=== PATIENT | female | born 1990 | race Caucasian/White ===

== ENCOUNTER 2018-06-30 17:55 | Emergency (ER) | payer OTHER ==
[~2018-06-30] VITALS: Ht 162.6 cm; Wt 120.9 kg
[~2018-06-30 17:55] MED LIST: ACET-1693 PO; FERR1TAB62 PO; IBUP-1050 PO; MULT-513 PO
[2018-06-30 18:00] VITALS: TEMP 36.9; O2SAT 100; Ht 162.6 cm; Wt 120.9 kg
[2018-06-30] MEDS ORDERED: MUPIROCIN 2% OINT 22 GM TUBE EXT STA (18:27)
[2018-06-30] MEDS ORDERED: CLINDAMYCIN HCL 150 MG CAP PO ONE (18:30)
[2018-06-30] MEDS ORDERED: CLIN150C PO (18:39)
[2018-06-30 19:02] VITALS: BP 151/83; PULSE 78
--- NOTE | 2018-06-30 23:44 | EMERGENCY ROOM VISIT NOTE ---
History Report prepared by Jose: Hai Collins Under the Supervision of: Dr. Enmanuel Jara M.D. First contact with patient: 18:04 Chief Complaint: BITE Stated Complaint: SPIDER BITE, SEEN YESTERDAY BUT GETTING WORSE History of Present Illness The patient is a 28 year old female who presents to the Emergency Room with complaints of a worsening bite to the right lower leg. The patient states that she was bitten by what she assumed to be a bug on her right leg over a week ago. She states that she itched it that day and applied cortisone. She reports that 2 days later, the site appeared to be "bubbling up" with a dark spot in the middle. She notes that yesterday she went to [facility] urgent care and was told that it looked like a possible spider bite. She was given Keflex, which she notes she has been taking. Today, she reports that she noticed swelling to the right leg and notes that there is redness surrounding the area and that it is painful to the touch. She states that she called her PCP today, who instructed her to report to the ER. The patient states that her son has had MRSA multiple times. The patient denies fevers, nausea, vomiting, chills, or upper leg pain. Source of History: patient Onset: over a week ago Position: leg (right) Quality: other (bite) Timing: worsening Note: redness and swelling Review of Systems See HPI for pertinent positives and negatives. A total of six systems were reviewed and were otherwise negative.v Past Medical & Surgical Medical Problems: (1) Intrauterine (2) Migraine (3) SROM (spontaneous rupture of membranes) Family History Diabetes mellitus FH: heart disease Kidney disease Kidney stones Social History Smoking Status: Never Smoker Alcohol Use: none Drug Use: none Marital Status: other Housing Status: lives with family Occupation Status: employed Current/Historical Medications Scheduled Clindamycin Hcl (Cleocin), 150 MG PO QID Ferrous Sulfate (Ferrous Sulfate), 325 MG PO DAILY Multivitamins/Minerals (Mvi With Minerals), 1 TAB PO DAILY Scheduled PRN Acetaminophen Tab (Tylenol), 650 MG PO Q4H PRN for Pain or Fever Ibuprofen (Advil), 400-600 MG PO Q6H PRN for QUIÑONEZ/Pain/Cramping Allergies Coded Allergies: Sulfa Drugs (Verified Allergy, Unknown, UNKNOWN, 06/30/18) Physical Exam Vital Signs Date Time Temp Pulse Resp B/P (MAP) Pulse Ox O2 Delivery O2 Flow Rate FiO2 06/30/18 19:02 78 20 151/83 06/30/18 18:00 36.9 88 20 145/82 100 Room Air Physical Exam GENERAL: Awake, alert, well-appearing, in no distress NEURO: Normal sensorium. No sensory or motor deficits noted. SKIN: 2 cm round erythematous and tender area on the back of the right lower leg with a small central ulceration and pus underneath the surface. MUSCULOSKELETAL: No joint edema. No bony tenderness. See skin examination above. Remainder of the right leg examines normally. Medical Decision & Procedures Medications Administered Medications (Trade) Dose Ordered Sig/Rosendo Route Start Time Stop Time Status Last Admin Dose Admin Clindamycin HCl (Cleocin Cap) 150 mg ONE ONCE PO 06/30/18 18:30 06/30/18 18:31 DC 06/30/18 18:30 150 MG Mupirocin (Bactroban 2% Oint) 1 appln NOW STAT EXT 06/30/18 18:27 06/30/18 18:28 DC 06/30/18 19:02 1 APPLN ED Course 1816: The patient was evaluated in room D3B. A complete history and physical exam was performed. I discussed results and discharge instructions: She verbalized understanding and agreement. The patient is ready for discharge. 1826: Ordered Mupirocin 1 appln EXT 1830: Ordered Cleocin Cap 150 mg PO. Medical Decision Triage Nursing notes reviewed and agree them. The patient's history was concerning for swelling and redness of the skin. Differential diagnosis: Etiologies such as cellulitis,necrotizing fasciitis, abscess, MRSA infection, dermatitis, drug eruption, DVT, as well as others were entertained.. Physical examination: The physical examination was consistent with a mild cellulitis and open wound. Difficult to assess the root cause as this is been present for over a week. No definitive abscess. ER treatment provided: Culture obtained Patient started on oral clindamycin as she has a family member that has had multiple MRSA abscesses. She is allergic to sulfa drugs. On reassessment the patient felt better. Diagnostics interpreted by me: Culture pending. This appears to be isolated infected open wound. Incision and drainage is not necessary at this time. I discussed warning signs and symptoms. She will be started on clindamycin. Culture was done. She will follow-up with her primary clinic. If she worsens in any way she will need to come back to the ER. I gave my usual and customary discussion regarding this issue. By the evaluation outlined above other emergent etiologies such as those listed in the differential, as well as others, were deemed relatively unlikely. The patient was educated about the findings as listed above. All questions were answered and the patient was pleased with the treatment. Return instructions were outlined and the patient was discharged in stable condition. The patient was referred to her PCP for follow-up for a recheck of the current condition. Medication Reconcilliation Current Medication List: was personally reviewed by me Blood Pressure Screening Patient's blood pressure: Elevated blood pressure Blood pressure disposition: Elevated BP felt to be situational Impression Primary Impression: Wound of right lower extremity Scribe Attestation The scribe's documentation has been prepared under my direction and personally reviewed by me in its entirety. I confirm that the note above accurately reflects all work, treatment, procedures, and medical decision making performed by me. Departure Information Dispostion Home / Self-Care Prescriptions Clindamycin Hcl (CLEOCIN) 150 Mg Cap 150 MG PO QID, #36 CAP Prov: Enmanuel Jara MD 06/30/18 Referrals No Doctor, Assigned (PCP) Forms HOME CARE DOCUMENTATION FORM, IMPORTANT VISIT INFORMATION Patient Instructions My [facility] Additional Instructions A wound culture is pending. Call back to the emergency department on Wednesday for results. The phone number is [phone]. Stop the Keflex (cephalexin). Bactroban ointment twice daily to the wound until healed. Clindamycin 150 mg: Take one pill four times daily for 10 days for your skin infection. All antibiotics can cause diarrhea. If this occurs and you feel worse or it does not resolve in 1-2 days follow up with your doctor or return to the Emergency Department as this could be signs of serious underlying problems. Any medication can cause an allergic reaction, stop the pills immediately and return to the ER for rash, hives, breathing difficulties, or swelling. . Ibuprofen(Motrin, Advil) may be used for fever or pain. Use 600mg every six hours as needed. Take with food. Avoid using more than 2400mg in a 24 hour period. Do not use 2400mg per day for more than three consecutive days without physician direction. Prolonged inappropriate use can lead to stomach upset or ulcers. (AND/OR) Acetaminophen(Tylenol) may be used for fever or pain. Use 1000mg every six hours as needed. Avoid using more than 4000mg in a 24 hour period. Warm compresses to the affected area 4 times daily for 15-20 minutes. Rest and drink plenty of fluids. Continue current medications. Return to the ER for severe pain, persistent fevers, spreading redness, or any worsening of your condition. Follow up with your primary physician within 2-3 days for a recheck of the current condition.
== END 2018-06-30 19:04 | disposition home or self-care (01) ==
LOC: C.EDB 17:56 → C.EDD 19:04
DX: S80.861A Insect bite (nonvenomous), right lower leg, initial encounter (principal); W57.XXXA Bitten or stung by nonvenomous insect and other nonvenomous arthropods, initial encounter; Z79.899 Other long term (current) drug therapy; Z88.2 Allergy status to sulfonamides

== ENCOUNTER 2022-08-22 18:15 | Inpatient (IN) ==
[2022-08-22] MEDS ORDERED: LIDOCAINE 1% LOCAL 20 ML VIAL INFIL PRN (19:28)
[2022-08-22] MEDS ORDERED: OXYTOCIN 30 UNITS/500 ML BAG IV PRN ×2 (19:28→21:23)
[2022-08-22 19:53] LABS: Hematocrit (blood only) 32.9 % (34.1-44.9); Mean Corpuscular Hemoglobin 28.9 pg (25.0-34.0); Mean Corpuscular Hgb Conc 33.4 g/dL (32.0-36.0); Mean Corpuscular Volume 86.6 fL (80.0-100.0); Mean Platelet Volume 9.8 fL (9.4-12.3); Platelet Count 262 K/uL (130-400); RDW Coefficient of Variation 13.8 % (11.5-14.5); White Blood Count 11.65 K/ul (4.8-10.8)
--- NOTE | 2022-08-22 21:23 | History & Physical Report ---
Date of Service August 22, 2022 Assessment & Plan (1) Term : (2) GDM, class A1: Plan: Admit in early labor Admission and Anticipated Discharge Date Admission Date: August 22, 2022 History of Present Illness Chief Complaint: spontaneous rupture of membranes Primary Care Provider: Shahida Mccord PA-C 32 F P2002 at 38.6 weeks admitted with SROM clear fluid at 4:30 PM today. Her GBS is negative. Allergies Allergy/AdvReac Type Severity Reaction Status Date / Time Sulfa (Sulfonamide Allergy Unknown Rash Verified 03/31/22 10:09 Antibiotics) Home Medications Medication Instructions Recorded Confirmed Type bupropion HCl 150 mg 24 hr tablet, 150 mg PO QAM 03/31/22 08/22/22 History extended release (Wellbutrin XL) prenat.vits,phyllis,[id number] 1 tab PO DAILY 03/31/22 08/22/22 History ferrous sulfate 325 mg (65 mg 325 mg PO DAILY 08/22/22 08/22/22 History iron) tablet (iron) Patient History Medical History Anxiety Gestational diabetes diet controlled Hx of macrosomia in in prior , currently 9lb baby -2009 shoulder dystocia (spontaneous vaginal delivery) 2008-boy 2015-girl Surgical History History of cholecystectomy Family History Father Diabetes Social History Smoking Status: Never smoker Hx Alcohol Use: No Hx Substance Use: No Preferred Language: Tongan Communication Ability: Effective Psych Rn Required: No Beliefs That Will Affect Care: None marital status: Single marital status details: Chris Ibarra Current Living Situation: Family and Significant Other Current Living Situation Comment: lives with FOB and 2 children current occupational status: employed current occupation: [email or web address] Other Information That Helps Us Care for You: No Feels Safe at Home: Yes Safety Concerns: Feels Safe At This Time Assistive Devices: None OB History x2 gestational diabetes diet controlled 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 of macrosomia 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 History neg Review of Systems All systems reviewed & are unremarkable except as noted in HPI & below Physical Exam Constitutional: WD/WN, vitals as above Eyes: PERRL, conjunctivae normal, anicteric sclerae Respiratory: normal respiratory effort, lungs clear to auscultation Gastrointestinal (Abdomen): Inspection/Auscultation: abdomen normal to inspection gravid Musculoskeletal: Extremities: extremities normal to inspection Skin: no rashes, warm and dry Neurologic: patellar DTR's 2+ bilat, sensation intact Psychiatric: A+Ox3, euthymic affect Genitourinary: no vaginal lesions, no adnexal mass OB Exam Abdomen: + fundal height, + vertex and + estimated weight (8-9 lbs.) Results & Data ([facility]) Vital Signs (Past 12 Hours) Vital Signs Temp Pulse Resp BP 08/22/22 19:00 37.0 C 18 08/22/22 19:10 83 119/78 08/22/22 18:29 18 08/22/22 18:29 37.1 C 18 08/22/22 18:28 93 H 118/73 Laboratory Results Laboratory Results - last 48 hr 08/22/22 08/22/22 08/22/22 19:30 19:43 19:45 WBC 11.65 H RBC 3.80 L Hgb 11.0 L Hct 32.9 L MCV 86.6 MCH 28.9 MCHC 33.4 RDW Std Deviation 43.0 RDW Coeff of Rogelio 13.8 Plt Count 262 MPV 9.8 SARS-CoV-2, RNA, NAAT NEGATIVE Blood Type O Positive Antibody Screen NEGATIVE Code Status & VTE Plan VTE Prophylaxis Plan VTE Prophylaxis will be ordered: No Monitoring External Monitor Cat 1
[2022-08-22] MEDS ORDERED: LANSOPRAZOLE 15 MG SOLTAB PO ONE (22:17)
[2022-08-23] MEDS: LACTATED RINGER'S 1,000 ML IV PRN ×2 (00:51→01:56)
[2022-08-23] MEDS ORDERED: SODIUM CHLORIDE 0.9% INJ 10 ML VIAL ONE (00:57)
[2022-08-23] MEDS ORDERED: LIDOCAINE 2%/EPINEPHRINE 1:200,000 20 ML SDV ONE (00:57)
[2022-08-23] MEDS ORDERED: fentaNYL citrate 100 MCG/2 ML VIAL ONE (00:57)
[2022-08-23] MEDS ORDERED: BUPIVACAINE 0.25% 30 ML VIAL ONE (00:57)
[2022-08-23] MEDS ORDERED: ePHEDrine sulfate 50 MG/ML AMP ONE (00:57)
[2022-08-23] MEDS ORDERED: ePHEDrine sulfate 50 MG/ML AMP IV PRN (01:29)
[2022-08-23] MEDS ORDERED: diphenhydrAMINE 50 MG/ML VIAL IV PRN (01:29)
[2022-08-23] MEDS ORDERED: NALOXONE HCL 0.4 MG/1 ML VIAL/CARP IV PRN (01:29)
[2022-08-23] MEDS ORDERED: ONDANSETRON INJ 2 MG/ML 2 ML VIAL IV PRN (01:29)
[2022-08-23] MEDS ORDERED: fentaNYL 2MCG/ML ROPIVACAINE 1.25MG/ML 100 ML BAG EPI PRN (01:29)
[2022-08-23] MEDS ORDERED: NALBUPHINE HCL INJ 10 MG/ML AMP IV PRN (01:29)
[2022-08-23] MEDS ORDERED: NALOXONE HCL 1 MG in SODIUM CHLORIDE 0.9% 1000ML 1,000 ML IV PRN (01:29)
--- NOTE | 2022-08-23 01:34 | Anesthesiology Consultation ---
Date of Service August 23, 2022 Assessment & Plan Chart Review Chart Review: Patient NOT seen in Pre Admission Testing and Acceptable Risk for Labor Epidural Consults Requested none ASA ASA2 Proposed Anesthesia Anesthesia Type: Labor Epidural and CSE Risk / Benefits Reviewed With: PT / POA / Parent / Guardian, Accepts Plan and Informed Consent Obtained History Height/Weight Height: 5 ft 4 in Weight: 127.913 kg Allergies Allergy/AdvReac Type Severity Reaction Status Date / Time Sulfa (Sulfonamide Allergy Unknown Rash Verified 03/31/22 10:09 Antibiotics) Medications Home Medications Medication Instructions Recorded Confirmed Last Taken bupropion HCl 150 mg 24 hr tablet, 150 mg PO QAM 03/31/22 08/22/22 08/22/22 09:00 extended release (Wellbutrin XL) prenat.vits,phyllis,[id number] 1 tab PO DAILY 03/31/22 08/22/22 08/22/22 09:00 ferrous sulfate 325 mg (65 mg 325 mg PO DAILY 08/22/22 08/22/22 08/22/22 09:00 iron) tablet (iron) Active Medications Generic Name Dose Route Start Last Admin Trade Name Freq PRN Reason Stop Dose Admin Lactated Ringer's 1,000 mls @ 125 mls/hr 08/22/22 19:28 08/23/22 00:51 Lr IV 08/24/22 19:27 999 mls/hr .Q8H PRN Administration L&D Protocol Protocol Oxytocin 30 units in 500 mls @ 1 mls/hr 08/22/22 21:23 08/23/22 00:50 Pitocin IV 08/24/22 21:22 0.06 units/hr .Q24H PRN 1 mls/hr Labor Induction/Augmentation Administration Protocol 0.06 UNITS/HR NPO Date Last Intake of Fluids: 08/23/22 Time Last Intake of Fluids: 00:00 Date Last Intake of Solids: 08/22/22 Time Last Intake of Solids: 20:00 Past Medical History Medical History Anxiety Gestational diabetes diet controlled Hx of macrosomia in infant in prior , currently 9lb baby -2009 shoulder dystocia (spontaneous vaginal delivery) 2009-boy 2015-girl Exercise / Class Metabolic Activity II 4-5 Yardwork/Stairs/Walk up hill Past Family History Family History Father Diabetes Past Surgical History Surgical History History of cholecystectomy Past Anesthesia History No Hx of Anesthesia Complications and No Family Hx of Anesthesia Complications History of PONV No Hx of PONV and No Hx of Motion Sickness Social History Smoking Status: Never smoker Hx Alcohol Use: No Hx Substance Use: No Review of Systems no chest pain or sob Physical Exam Vital Signs Last Vital Signs Temp 36.9 C 08/23/22 00:55 Pulse 76 08/23/22 01:31 Resp 18 08/22/22 23:13 BP 123/76 08/23/22 00:46 Pulse Ox 100 08/23/22 01:31 ENMT Mouth: no TMJ abnormality Thyromental Distance: > or= 3.5 Finger Breadths Mallampati Class: II Neck normal visual inspection Respiratory normal respiratory effort Auscultation: lungs clear to auscultation bilaterally Cardiovascular Rate/Rhythm: regular rate and regular rhythm Musculoskeletal Spine: normal cervical ROM Neurologic moves all extremities Psychiatric Orientation: alert and oriented x 3 Testing Laboratory Results 08/22/22 19:43 Blood Type O Positive 08/22/22 19:45 Antibody Screen NEGATIVE 08/22/22 19:45 08/22/22 21:20 POC Glucose 80
[2022-08-23] MEDS ORDERED: OXYTOCIN 30 UNITS/500 ML BAG IV PRN ×2 (06:38→09:07)
--- NOTE | 2022-08-23 09:06 | Delivery Summary ---
Vaginal Delivery Summary Date of Service August 23, 2022 Vaginal Delivery Summary Delivery Note live female LEONCIO over intact perineum with delayed cord clamping and Apgars 8/9 weight pending. Cord blood obtained followed by spontaneous delivery of intact placenta with 3VC. No tears. EBL 100 ml. Final sponge and instrument count are correct. Mom and baby stable.
[2022-08-23] MEDS ORDERED: HYDROCORTISONE ACETATE 25 MG SUPP PR PRN (09:07)
[2022-08-23] MEDS ORDERED: bisacodyL 10 MG SUPP PR PRN (09:07)
[2022-08-23] MEDS ORDERED: DIPHTHERIA/TETANUS/PERTUSSIS 0.5 ML SYR/VIAL IM ONE (09:07)
[2022-08-23] MEDS ORDERED: ACETAMINOPHEN 325 MG TAB PO PRN (09:07)
[2022-08-23] MEDS ORDERED: BENZOCAINE 20% AER SPR 82.5 GM CAN EXT PRN (09:07)
--- NOTE | 2022-08-23 09:14 | Anesthesia Procedure Note ---
Date of Service August 23, 2022 Anesthesia Post Epidural Note Vital Signs Vital Signs: Temp Pulse Resp BP Pulse Ox 36.9 C 100 H 18 114/55 L 92 08/23/22 09:00 08/23/22 09:00 08/23/22 09:00 08/23/22 09:00 08/23/22 08:51 Notes Mental Status: alert / awake / arousable Nausea / Vomiting: adequately controlled Pain: adequately controlled Airway Patency, RR, SpO2: stable & adequate BP & HR: stable & adequate Hydration State: stable & adequate Neuraxial Anesthesia: was administered and sensory block is resolving Anesthetic Complications: no major complications apparent Epidural: Removed without complications and With tip intact
[2022-08-23] MEDS: IBUPROFEN 600 MG TAB PO PRN (15:51)
[2022-08-23] MEDS: DOCUSATE SODIUM 100 MG CAP PO SCH (20:03)
[2022-08-24] MEDS: IBUPROFEN 600 MG TAB PO PRN ×2 (00:44→08:14)
[2022-08-24 06:27] LABS: Hematocrit (blood only) 31.1 % (34.1-44.9); Hemoglobin 10.2 g/dl (12.0-16.0); Mean Corpuscular Hemoglobin 28.9 pg (25.0-34.0); Mean Corpuscular Hgb Conc 32.8 g/dL (32.0-36.0); Mean Corpuscular Volume 88.1 fL (80.0-100.0); Mean Platelet Volume 9.8 fL (9.4-12.3); Platelet Count 221 K/uL (130-400); RDW Standard Deviation 45.1 fL (36.4-46.3); Red Blood Count 3.53 M/uL (3.93-5.22); White Blood Count 11.19 K/ul (4.8-10.8)
[2022-08-24] MEDS ORDERED: FERROUS SULFATE 325 MG TAB PO SCH (08:00)
[2022-08-24] MEDS ORDERED: PRENATAL VITAMIN 1 TAB PO SCH (08:00)
[2022-08-24] MEDS: DOCUSATE SODIUM 100 MG CAP PO SCH (08:14)
[2022-08-24] MEDS ORDERED: NON-FORMULARY MEDICATION (Prenat.Vits,Cal,Min-Iron-Folic Tablet) PO SCH (09:00)
[2022-08-24] MEDS ORDERED: NON-FORMULARY MEDICATION (Ferrous Sulfate [Iron] 325 mg (65 mg iron) Tablet) PO SCH (09:00)
[2022-08-24] MEDS ORDERED: buPROPion XL 150 MG TABCR PO SCH (09:00)
--- NOTE | 2022-08-24 10:01 | Obstetrical Progress Note ---
Date of Service August 24, 2022 Assessment & Plan (1) Normal course: PPD #1 doing well wishes to be discharged home Subjective Ambulation: ambulating normally Voiding: no voiding problems Passing Gas:: Yes Diet Tolerance:: regular diet Lochia:: Small Feeding Type:: breast feeding Review of Systems All systems reviewed & are unremarkable except as noted in HPI & below Physical Exam Constitutional WD/WN, vitals as above well developed and well nourished Eyes PERRL, conjunctivae normal, anicteric sclerae Neck trachea midline, no thyromegaly Respiratory normal respiratory effort, lungs clear to auscultation Auscultation: no crackles, no rales and no wheezes Cardiovascular RRR, no murmur, no edema Gastrointestinal (Abdomen) normal bowel sounds, soft, nontender, no hepatosplenomegaly Uterus is below umbilicus Musculoskeletal no cyanosis or clubbing, extremities motor strength 5/5 Skin no rashes, warm and dry Neurologic patellar DTR's 2+ bilat, sensation intact Psychiatric A+Ox3, euthymic affect Genitourinary normal external appearance Results & Data ([facility]) Vital Signs (Past 12 Hours) Vital Signs Temp Pulse Resp BP BP Pulse Ox O2 Del Method 08/24/22 07:45 36.5 C 80 19 119/72 Room Air 08/24/22 03:30 36.5 C 76 18 97/55 L 98 08/24/22 00:00 36.7 C 71 18 114/77 98 Room Air
[2022-08-24] MEDS ORDERED: bisacodyL 5 MG TABEC PO SCH (20:00)
== END 2022-08-24 12:00 | disposition home or self-care (01) | DRG 807 ==
LOC: OPB 18:15 → 4S1 18:18 → 4E2 08-23 11:39